=== PATIENT | male | born 1970 | race Caucasian/White ===

== ENCOUNTER 2021-02-08 08:44 | Outpatient (CLI) | payer OTHER, SELFPAY ==
--- NOTE | ~2021-02-08 | XR_ITS ---
EXAMINATION: XR chest 2V 02/08/2021 09:21 INDICATION: Chronic cough PROCEDURE: 2 view chest COMPARISON: No prior studies for comparison. FINDINGS: The lungs are clear. The cardiomediastinal silhouette is within normal limits. There are no pleural effusions. There is no pneumothorax suspected. IMPRESSION: 1: NO ACUTE CARDIOPULMONARY DISEASE. Reviewed, dictated and finalized at location B. LOADER
[2021-02-08 09:29] LABS: Basophils Percent Auto 0.8 % (0.2-1.2); Eosinophils Absolute Auto 0.3 K/mm3 (0-0.3); Eosinophils Percent Auto 5.2 % (0-4.4); Hematocrit 46.7 % (42.0-52.0); Hemoglobin 16.5 g/dL (14.0-18.0); Immature Granulocyte Absolute 0.03 K/mm3 (0.00-0.031); Immature Granulocyte Percent A 0.6 % (0-0.5); Lymphocytes Absolute Auto 1.82 K/mm3 (0.9-3.2); Lymphocytes Percent Auto 35.1 % (18.3-44.2); Mean Corpuscular HGB Conc 35.3 g/dl (32-36); Mean Corpuscular Hemoglobin 31.3 pg (26-34); Mean Corpuscular Volume 88.6 fl (80-100); Mean Platelet Volume 9.2 fl (7.4-10.4); Monocytes Absolute Auto 0.5 K/mm3 (0.1-0.6); Monocytes Percent Auto 9.6 % (2.6-8.5); Neutrophils Absolute Auto 2.5 K/mm3 (1.3-6.7); Neutrophils Percent Auto 48.7 % (45.5-73.1); Platelet Count Result 158 k/mm3 (150-375); Red Blood Count 5.27 M/mm3 (4.6-6.20); Red Cell Distribution Width 12.2 % (11.5-14.5); White Blood Count 5.2 K/mm3 (4.5-10.0)
[2021-02-08 09:43] LABS: Hemoglobin A1C 5.1 % (<5.7)
[2021-02-08 09:59] LABS: Alanine Aminotransferase 41 U/L (4-50); Albumin Level 4.2 g/dL (3.5-5.1); Alkaline Phosphatase 66 U/L (38-126); Anion Gap 10 mmol/L (8-16); Aspartate Amino Transferase 36 U/L (17-59); Bilirubin,Total 0.8 mg/dL (0.2-1.3); Blood Urea Nitrogen 14 mg/dL (9-20); Carbon Dioxide 27 mmol/L (22-30); Chloride 105 mmol/L (98-107); Cholesterol 124 mg/dL (0-200); Estimated Glomerular Filt Rate > 60; Glucose 108 mg/dL (65-110); HDL Direct 33 mg/dL; Potassium 4.1 mmol/L (3.4-5.0); Sodium 142 mmol/L (137-145); Triglycerides 98 mg/dL (<150)
[2021-02-08 10:10] LABS: LDL Cholesterol Direct 65 mg/dL
[2021-02-08 10:13] LABS: Free T4 Free Thyroxine 1.09 ng/mL (0.78-2.19)
[2021-02-11 14:26] LABS: Testosterone Total 436 ng/dL (250-1100)
== END 2021-02-08 08:45 | disposition home or self-care (01) ==
PROVIDERS: PCP Internal Medicine; Visit Provider Internal Medicine
DX: E78.2 Mixed hyperlipidemia (principal); Z13.1 Encounter for screening for diabetes mellitus; Z13.29 Encounter for screening for other suspected endocrine disorder; Z51.81 Encounter for therapeutic drug level monitoring; Z79.899 Other long term (current) drug therapy; R05.9 Cough, unspecified; Z86.16 Personal history of COVID-19
CPT/HCPCS: 36415; 71046; 80053; 80061; 83036; 84403; 84439; 84443; 85025

== ENCOUNTER 2021-05-24 15:51 | Outpatient (CLI) | payer OTHER, SELFPAY ==
--- NOTE | ~2021-05-24 | XR_ITS ---
XR lumbar spine min 4V DATE: 05/24/2021 16:38 INDICATION: Low back pain, chronic. No injury. TECHNIQUE: AP, lateral, coned lateral lumbosacral views. Flexion and extension lateral views. COMPARISON: None FINDINGS: No fracture or bone destruction. Included lower thoracic and lumbar pedicles are intact. Jill mbar and lumbosacral interspaces are well preserved. The sacroiliac joints appear intact. IMPRESSION: No significant abnormality Reviewed, dictated and finalized at location A. IMPRESSION: No significant abnormality
--- NOTE | ~2021-05-24 | XR_ITS ---
XR hip LT min 2V DATE: 05/24/2021 16:37 INDICATION: Ski injury 4 weeks ago. Left hip pain. TECHNIQUE: AP, lateral, crosstable lateral views of left hip COMPARISON: None FINDINGS: No fracture or dislocation, avascular necrosis or bone destruction. Left hip joint space is preserved. The pubic symphysis and left sacroiliac joint are intact. IMPRESSION: No significant abnormality Reviewed, dictated and finalized at location A. IMPRESSION: No significant abnormality
--- NOTE | ~2021-05-24 | XR_ITS ---
XR sacroiliac joints min 3V DATE: 05/24/2021 16:37 INDICATION: Chronic sacroiliac, low back pain TECHNIQUE: AP, bilateral oblique views COMPARISON: None FINDINGS: No fracture or dislocation, erosive change or ankylosis. IMPRESSION: Negative Reviewed, dictated and finalized at Location A. Reviewed, dictated and finalized at location A. IMPRESSION: Negative
== END 2021-05-24 15:52 | disposition home or self-care (01) ==
LOC: ANHIMG 15:52
PROVIDERS: PCP Internal Medicine; Visit Provider Internal Medicine
DX: M25.552 Pain in left hip (principal); M54.50 Low back pain, unspecified
CPT/HCPCS: 72110; 72202; 73502